=== PATIENT | female | born 1990 | race Caucasian/White ===

== ENCOUNTER 2016-09-27 15:43 | Emergency (ER) | payer OTHER ==
[~2016-09-27] VITALS: Ht 149.9 cm; Wt 67.5 kg
[2016-09-27 15:50] VITALS: Ht 149.9 cm; Wt 67.5 kg
[2016-09-27] MEDS ORDERED: ONDANSETRON (ODT) 4 MG TAB ODT STA (17:27)
[2016-09-27] MEDS ORDERED: IBUPROFEN 600 MG TAB PO ONE (17:30)
--- NOTE | 2016-09-27 17:37 | ERD ---
ER Documentation Chief Complaint Date/Time DATE: 09/27/16 TIME: 17:32 Chief Complaint REFERRED BY CLINIC FOR EVALUATION OF PCOS HPI This is a 26-year-old female presents to the ER for vaginal bleeding for the last 3 weeks. Patient states that she went to an urgent care today and she was referred to the ER for evaluation of "menorrhagia." Patient uses about 2-3 panty liners throughout the day. She admits to foul-smelling vaginal discharge that started 2 or 3 days ago. She denies any urinary frequency or dysuria. Patient is also complaining of nausea and one episode of nonbilious nonbloody vomiting today. She denies diarrhea, abdominal pain or pelvic pain. Patient does not have any fever or chills. Patient has a past medical history of PCOS. ROS 12 point review of systems was done, all negative except per HPI. Medications Home Meds Active Scripts Ondansetron Hcl* (Zofran*) 4 Mg Tablet, 4 MG PO Q6H for NAUSEA AND/OR VOMITING, #30 TAB Prov:FADUMO HERNDON 09/27/16 Metronidazole* (Flagyl*) 500 Mg Tablet, 500 MG PO TID for 7 Days, TAB Prov:KATRINAFADUMO C 09/27/16 Allergies Allergies: Coded Allergies: No Known Drug Allergies (Verified Allergy, Mild, 07/23/11) PMhx/Soc History of Surgery: No Anesthesia Reaction: No Hx Neurological Disorder: No Hx Respiratory Disorders: No Hx Cardiac Disorders: No Hx Psychiatric Problems: No Hx Miscellaneous Medical Probl: No Hx Alcohol Use: No Hx Substance Use: No Hx Tobacco Use: No Physical Exam Vitals Vital Signs Date Time Temp Pulse Resp B/P Pulse Ox O2 Delivery O2 Flow Rate FiO2 09/27/16 15:50 98.9 64 16 129/79 100 Physical Exam GENERAL: The patient is well developed and appropriate for usual state of health , in no apparent distress. HEENT: Atraumatic. Conjunctivae are pink. Pupils equal, round, and reactive to light. Extraocular muscles are grossly intact. Bilateral tympanic membranes are clear with no evidence of erythema, effusion or dulling of the light reflex. The oropharynx is clear with no erythema or exudates. NECK: C-spine is soft and supple. There is no cervical lymphadenopathy. CHEST: Clear to auscultation bilaterally. There are no rales, wheezes or rhonchi. HEART: Regular rate and rhythm. No murmurs, clicks, rubs or gallops. ABDOMEN: Soft, nontender and nondistended. Good bowel sounds. No rebound or guarding. No gross peritonitis. No gross organomegaly or masses. No Gurera sign or McBurney point tenderness. BACK: No midline or flank tenderness. EXTREMITIES: Equal pulses bilaterally. There is no peripheral clubbing, cyanosis or edema. No focal swelling or erythema. Full range of motion. Grossly neurovascularly intact. NEURO: Alert and oriented. Cranial nerves II through XII are intact. Motor strength in all 4 extremities with 5/5 strength. Sensation grossly intact. Normal speech and gait. SKIN: There is no apparent rash or petechia. The skin is warm and dry. Result Diagram: 09/27/[id number] Results 24 hrs Laboratory Tests Test 09/27/16 17:45 09/27/16 18:45 09/28/16 12:11 Alanine Aminotransferase (ALT/SGPT) 31IU/L Albumin 4.6g/dl Albumin/Globulin Ratio 1.15 Alkaline Phosphatase 83IU/L Anion Gap 17 Aspartate Amino Transf (AST/SGOT) 28IU/L Basophils # 0.110^3/ul Basophils % 0.7% Blood Morphology Comment Blood Urea Nitrogen 15mg/dl Calcium Level 8.9mg/dl Carbon Dioxide Level 22mmol/L Chloride Level 106mmol/L Creatinine 0.82mg/dl Direct Bilirubin 0.00mg/dl Eosinophils # 0.210^3/ul Eosinophils % 2.3% Globulin 4.00g/dl Glucose Level 88mg/dl Hematocrit 43.5% Hemoglobin 14.7g/dl Indirect Bilirubin 0.2mg/dl Lymphocytes # 2.410^3/ul Lymphocytes % 28.1% Mean Corpuscular Hemoglobin 28.3pg Mean Corpuscular Hemoglobin Concent 33.8g/dl Mean Corpuscular Volume 83.9fl Mean Platelet Volume 8.2fl Monocytes # 0.610^3/ul Monocytes % 6.9% Neutrophils # 5.310^3/ul Neutrophils % 62.0% Nucleated Red Blood Cells # 0.010^3/ul Nucleated Red Blood Cells % 0.0/100WBC Platelet Count 93547^3/UL Potassium Level 4.1mmol/L Red Blood Count 5.1810^6/ul Red Cell Distribution Width 12.7% Sodium Level 141mmol/L Total Bilirubin 0.2mg/dl Total Protein 8.6g/dl White Blood Count 8.510^3/ul Urine Amorphous Phosphates FEW Urine Bacteria FEW Urine Bilirubin NEGATIVE Urine Clarity HAZY Urine Color LT. YELLOW Urine Glucose NEGATIVE% Urine Hemoglobin 2+ Urine Ketones NEGATIVE Urine Leukocyte Esterase NEGATIVE Urine Microscopic RBC 2-5/HPF Urine Microscopic WBC 0-2/HPF Urine Nitrite NEGATIVE Urine Specific [place] 1.020 Urine Squamous Epithelial Cells FEW Urine Total Protein NEGATIVE Urine Urobilinogen 0.2 E.U./dL Urine pH 7.0 Lab Scanned Report REFERENCE [id number] Current Medications Medications (Trade) Dose Ordered Sig/Mira Route PRN Reason Start Time Stop Time Status Last Admin Dose Admin Ondansetron HCl (Zofran Odt) 4 mg ONCE STAT ODT 09/27/16 17:27 09/27/16 17:31 DC 09/27/16 17:45 Ibuprofen (Motrin) 600 mg ONCE ONCE PO 09/27/16 17:30 09/27/16 17:31 DC 09/27/16 17:45 Procedures/MDM This is a 26-year-old female presents to the ER for heavy menstrual period, vaginal discharge and nausea. Differential Diagnosis includes but is not limited to; dysfunctional uterine bleeding, endometriosis, , ectopic , bacterial vaginosis, yeast infection, STI, pelvic inflammatory disease. At this time there is no abnormality on ultrasound. Patient is hemodynamically stable with no evidence of urinary tract infection or any other infectious etiology. Patient's heavy period is likely due to her past medical history of PCOS. In regards to patient's vaginal discharge this is likely bacterial vaginosis, she will be sent home with metronidazole. Suspicion for pelvic inflammatory disease is low. Patient does not have any pelvic pain. Patient is afebrile and well appearing. She is stable for outpatient therapy. I shared my medical decision making with the patient, she understands and agrees with plan. Patient needs to return to ER if symptoms continue or worsen. Departure Diagnosis: Primary Impression: Menorrhagia Condition: Stable FADUMO HERNDON Sep 27, 2016 17:37
[2016-09-27 17:49] LABS: BASOPHIL # 0.1 10^3/ul (0.0-0.1); BASOPHILS % 0.7 % (0.0-2.0); EOSINOPHILS # 0.2 10^3/ul (0.0-0.5); EOSINOPHILS % 2.3 % (0.0-7.0); HEMATOCRIT 43.5 % (37.0-47.0); HEMOGLOBIN 14.7 g/dl (12.0-16.0); LYMPHOCYTES # 2.4 10^3/ul (0.8-2.9); LYMPHOCYTES % 28.1 % (15.0-51.0); MEAN CORPUSCULAR HEMOGLOBIN 28.3 pg (29.0-33.0); MEAN CORPUSCULAR HGB CONC 33.8 g/dl (32.0-37.0); MEAN CORPUSCULAR VOLUME 83.9 fl (82.0-101.0); MEAN PLATELET VOLUME 8.2 fl (7.4-10.4); MONOCYTE # 0.6 10^3/ul (0.3-0.9); MONOCYTES % 6.9 % (0.0-11.0); NEUTROPHIL # 5.3 10^3/ul (1.6-7.5); PLATELET COUNT 291 10^3/UL (140-440); RED BLOOD COUNT 5.18 10^6/ul (4.20-5.40); RED CELL DISTRIBUTION WIDTH 12.7 % (11.5-14.5); UNCORRECTED WBC 8.5 10^3/ul (4.8-10.8); WHITE BLOOD COUNT 8.5 10^3/ul (4.8-10.8)
[2016-09-27 17:53] LABS: CONDITION 1
[2016-09-27 17:59] LABS: ALBUMIN 4.6 g/dl (3.3-4.9)
[2016-09-27 18:00] LABS: POTASSIUM 4.1 mmol/L (3.5-5.1)
[2016-09-27 18:02] LABS: ALBUMIN/GLOBULIN RATIO 1.15; BILIRUBIN,INDIRECT 0.2 mg/dl (0-1.1); BILIRUBIN,TOTAL 0.2 mg/dl (0.2-1.3); CREATININE 0.82 mg/dl (0.44-1.00); TOTAL PROTEIN 8.6 g/dl (6.1-8.1)
[2016-09-27 18:03] LABS: CALCIUM 8.9 mg/dl (8.4-10.2)
--- NOTE | 2016-09-27 18:48 | RADRPT ---
PROCEDURE: US Pelvis CLINICAL INDICATION: Vaginal bleeding TECHNIQUE: Sonographic evaluation of the pelvis was performed utilizing both transabdominal and tr ansvaginal technique. Curved array transabdominal transducer technique as well as a high frequency endovaginal probe was utilized. Images were reviewed on the high-resolution PACS workstation. COMPARISON: None available FINDINGS: The uterus is normal in size, echogenicity, and morphology measuring 6.3 x 3.7 x 3.9 cm in dimension . The uterus is retroverted. The endometrium measures 7.0 mm in diameter. The normal trilaminar stripe of the endometrium is preserved. Cervical Nabothian cysts are noted. The right ovary measures 4.1 x 2.3 x 3.0 cm in dimension. The left ovary measures 3.1 x 2.2 x 2.5 c m in dimension. No ovarian torsion or adnexal mass is identified. Small amount of pelvic free flui d is present. IMPRESSION: 1. Nonspecific small amount of pelvic free fluid is present, likely physiologic. 2. Otherwise unremarkable ultrasound exam. RPTAT: QQ .Abhishek Carrillo MD, MD Date Time Electronically viewed and signed by .Abhishek Carrillo MD, MD on 09/27/2016 18:48 .R/
[2016-09-27 18:56] LABS: ADD UMIC YES; URINE BILIRUBIN (Dip) NEGATIVE (NEGATIVE); URINE BLOOD (Dip) 2+ (NEGATIVE); URINE COLOR LT. YELLOW (YELLOW); URINE GLUCOSE (Dip) NEGATIVE (NEGATIVE); URINE KETONES (Dip) NEGATIVE (NEGATIVE); URINE LEUKOCYTE ESTERASE (Dip) NEGATIVE (NEGATIVE); URINE NITRITE (Dip) NEGATIVE (NEGATIVE); URINE TOTAL PROTEIN (Dip) NEGATIVE (NEGATIVE); URINE UROBILINOGEN (Dip) 0.2 E.U./dL (0.1-1.0)
[2016-09-27] MEDS ORDERED: METR500T PO (19:09)
[2016-09-27] MEDS ORDERED: ONDA4TAB8 PO (19:09)
[2016-09-27 19:11] LABS: SQUAMOUS EPITHELIAL CELL,UR FEW
[2016-09-27 19:12] LABS: BACTERIA,URINE FEW
== END 2016-09-27 19:28 | disposition home or self-care (01) ==
LOC: FTE 15:43
DX: N92.0 Excessive and frequent menstruation with regular cycle (principal); R11.2 Nausea with vomiting, unspecified
CPT/HCPCS: 36415; 76830; 76856; 80053; 81001; 81003; 85025

== ENCOUNTER 2017-02-13 23:22 | Emergency (ER) | payer SELFPAY ==
[~2017-02-13 23:22] MED LIST: METR500T PO; ONDA4TAB8 PO
== END 2017-02-14 01:00 | disposition left against medical advice (07) ==
LOC: E/R 23:22
DX: Z53.21 Procedure and treatment not carried out due to patient leaving prior to being seen by health care provider (principal)